=== PATIENT | male | born 1945 | race Caucasian/White ===

== ENCOUNTER 2017-01-04 08:00 | Emergency (ER) | payer OTHER ==
[~2017-01-04] VITALS: Ht 172.7 cm; Wt 80.9 kg
[~2017-01-04 08:00] MED LIST: ASPI81TA82 PO; ATOR80TA PO; BACL10TA PO; CLON.5 PO; GLIP5 PO; LISI40TA PO; MELO7.5 PO; METO50TA PO; METR-1 PO; PAME50CA PO; SERO200T PO; SERT100 PO; SKIN1CRE2 TOP; TOPI100 PO; TRAZ100 PO; VITA100018 PO; WAL-10TA2 PO; [UNRECOGNIZED DRUG - CODE]
[2017-01-04 08:16] VITALS: BP 140/81; PULSE 78; RESP 18; TEMP 97.6; O2SAT 97
[2017-01-04] MEDS ORDERED: SODIUM CHLOR 0.9% 1000 ML INJ 1,000 ML IV ONE (08:17)
--- NOTE | 2017-01-04 08:26 | PD ---
HPI Chief Complaint: Headache Time Seen by Provider: 08:17 Travel History International Travel<30 days: No Contact w/Intl Traveler<30days: No Traveled to known affect area: No History of Present Illness HPI 71-year-old male arrives with complaint of cluster headaches. He gets them periodically. Botox injections have been very helpful for the past year or so. He developed cluster type headache over the last day or so. [facility] He states the headache syndrome is classic for cluster type pain. He states she's had it for years. He was given Lortab by the [facility] and found very marginal improvement after taking it. He has had some vomiting. He denies neck stiffness. Pain was severe earlier. At the moment, his pain is minimal. Oxygen at home was helpful earlier. PFSH Past Medical History Arthritis: Yes Asthma: Yes Blood Disorders: No Heart Rhythm Problems: No Cancer: No Cardiac Catheterization: Yes Cardiovascular Problems: Yes High Cholesterol: Yes Chest Pain: Yes Congestive Heart Failure: Yes COPD: Yes Cerebrovascular Accident: Yes (NO DEFICITS) Coronary Artery Disease: Yes Diabetes: Yes Diminished Hearing: No Endocrine: Yes Gastrointestinal Disorders: Yes Genitourinary: No Headaches: Yes (CLUSTER) Hypertension: Yes Immune Disorder: No Musculoskeletal: Yes Neurologic: No Psychiatric: No Reproductive: No Respiratory: Yes Immunizations Current: Yes Myocardial Infarction: Yes (X 3) Sleep Apnea: Yes Thyroid Disease: No Past Surgical History AICD: No Arteriovenous Shunt: No Cardiac Surgery: Yes (CABG 5 VESSEL) Coronary Artery Bypass Graft: Yes (X 5 VESSELS) Insulin Pump: No Joint Replacement: No Pacemaker: No Other Surgery: No Social History Alcohol Use: No (QUIT 2002) Tobacco Use: No (QUIT 2002) Substance Use: No Allergies-Medications (Allergen,Severity, Reaction): Coded Allergies: Amoxicillin (Verified Allergy, Severe, UNKNOWN, 09/26/15) Aspirin (Verified Allergy, Severe, ULCERS, 09/26/15) Coumadin (Verified Allergy, Severe, "ULCERS", 09/26/15) Indomethacin (Verified Allergy, Severe, UNKNOWN, 09/26/15) Levaquin (Verified Allergy, Severe, Rash, 09/26/15) Nonsteroidal Anti-Inflammatory Agts (Verified Allergy, Severe, UNKNOWN, ) Latex (Verified Allergy, Unknown, 09/26/15) Reported Meds & Prescriptions Reported Meds & Active Scripts Active Reported Metoprolol Succinate ER 24 HR (Metoprolol Succinate) 25 Mg Tab 25 Mg PO BID Lisinopril 20 Mg Tab 20 Mg PO DAILY Aspirin 81 (Aspirin) 81 Mg Tabdr 81 Mg PO DAILY Glipizide 5 Mg Tab 5 Mg PO BIDAC Take 30 minutes before a meal Atorvastatin (Atorvastatin Calcium) 80 Mg Tab 80 Mg PO HS Folic Acid 400 Mcg Tab 400 Mcg PO DAILY Omeprazole 20 Mg Tab 20 Mg PO DAILY Hydrocodone-Acetaminophen 7.5-325 mg Tab 1 Tab PO TID PRN Review of Systems Except as stated in HPI: all other systems reviewed are Neg General / Constitutional: No: Fever Neurologic: Positive: Headache Physical Exam Narrative GENERAL: 71 yo M, WNWD, pleasant SKIN: Warm and dry. HEAD: Atraumatic. Normocephalic. Absence of forehead wrinkles is observed c/w Botox therapy. EYES: Pupils equal and round. No scleral icterus. No injection or drainage. ENT: No nasal bleeding or discharge. Mucous membranes pink and moist. NECK: Trachea midline. No JVD. CARDIOVASCULAR: Regular rate and rhythm. RESPIRATORY: No accessory muscle use. Clear to auscultation. Breath sounds equal bilaterally. GASTROINTESTINAL: Abdomen soft, non-tender, nondistended. Hepatic and splenic margins not palpable. MUSCULOSKELETAL: Extremities without clubbing, cyanosis, or edema. No obvious deformities. NEUROLOGICAL: Awake and alert. No obvious cranial nerve deficits. Motor grossly within normal limits. Five out of 5 muscle strength in the arms and legs. Normal speech. PSYCHIATRIC: Appropriate mood and affect; insight and judgment normal. Data Data Last Documented VS Vital Signs Date Time Temp Pulse Resp B/P Pulse Ox O2 Delivery O2 Flow Rate FiO2 01/04/17 08:57 71 18 139/74 94 Room Air 01/04/17 08:16 97.6 VS reviewed Orders Ecg Monitoring (01/04/17 08:17) Iv Access Insert/Monitor (01/04/17 08:17) Oximetry (01/04/17 08:17) Sodium Chloride 0.9% Flush (Ns Flush) (01/04/17 08:30) Prochlorperazine Inj (Compazine Inj) (01/04/17 08:30) Diphenhydramine Inj (Benadryl Inj) (01/04/17 08:30) Sodium Chlor 0.9% 1000 Ml Inj (Ns 1000 M (01/04/17 08:17) MDM Medical Decision Making Medical Screen Exam Complete: Yes Emergency Medical Condition: Yes Medical Record Reviewed: Yes Differential Diagnosis Cluster TEAGUE, migraine, complex migraine, ICH/SAH, meningitis Narrative Course Abortive therapy proved effective per pt attestation at time of reassessment at 910AM. Given chronicity and patient familiarity with disease we can reasonably safely defer diagnostic evaluations and focus primarily on treatment which has been performed in a meritorious fashion. Diagnosis Primary Impression: Cluster headache Qualified Code: G44.019 - Episodic cluster headache, not intractable Referrals: [facility] as needed Additional Instructions: You have a choice when it comes to health care, and we are glad that you chose [facility] Hopefully, we have met your expectations on today's visit. You are welcome to return to [facility] at any time, as we are committed to meeting the health care needs of our community. Med/Other Pt SpecificInfo: No Change to Meds Disposition: DISCHARGE HOME Condition: Jordan Ramirez MD January 04, 2017 08:26 Additional Instructions: You have a choice when it comes to health care, and we are glad that you chose [facility] Hopefully, we have met your expectations on today's visit. You are welcome to return to [facility] at any time, as we are committed to meeting the health care needs of our community. Med/Other Pt SpecificInfo: No Change to Meds Disposition: DISCHARGE HOME Condition: Jordan Ramirez MD January 04, 2017 08:26
[2017-01-04] MEDS ORDERED: GLIP5TAB8 PO (08:27)
[2017-01-04] MEDS ORDERED: OMEP20TA PO (08:27)
[2017-01-04] MEDS ORDERED: LISI-515 PO (08:27)
[2017-01-04] MEDS ORDERED: FOLI400T PO (08:27)
[2017-01-04] MEDS ORDERED: HYDR-3580 PO (08:27)
[2017-01-04] MEDS ORDERED: ASPI-110 PO (08:27)
[2017-01-04] MEDS ORDERED: ATOR1TAB18 PO (08:27)
[2017-01-04] MEDS ORDERED: METO25TA6 PO (08:27)
[2017-01-04] MEDS ORDERED: SODIUM CHLORIDE 0.9% FLUSH 10 ML FLUSH IVF PRN (08:30)
[2017-01-04] MEDS ORDERED: diphenhydrAMINE HCL 50 MG/ML VIAL IVP ONE (08:30)
[2017-01-04] MEDS ORDERED: PROCHLORPERAZINE INJ 10 MG/2 ML VIAL IVP ONE (08:30)
[2017-01-04 08:53] VITALS: O2SAT 97
[2017-01-04 08:57] VITALS: BP 139/74; PULSE 71; RESP 18; O2SAT 94
[2017-01-04] MEDS ORDERED: HYDROmorphone HCL PF 1 MG/ML VIAL IV PUSH ONE (09:30)
[2017-01-04 09:43] VITALS: BP 164/83; PULSE 69; RESP 18; O2SAT 95
== END 2017-01-04 10:13 | disposition home or self-care (01) ==
LOC: PHED 08:00
DX: G44.019 Episodic cluster headache, not intractable (principal); R11.10 Vomiting, unspecified; E11.9 Type 2 diabetes mellitus without complications; I10 Essential (primary) hypertension; E78.00 Pure hypercholesterolemia, unspecified; G47.30 Sleep apnea, unspecified; Z79.84 Long term (current) use of oral hypoglycemic drugs; Z87.39 Personal history of other diseases of the musculoskeletal system and connective tissue; Z87.09 Personal history of other diseases of the respiratory system; Z86.79 Personal history of other diseases of the circulatory system; Z87.19 Personal history of other diseases of the digestive system
CPT/HCPCS: 96361; 96374; 96375; 99284; J0780; J1170; J1200; J7030

== ENCOUNTER 2017-10-20 08:00 | Emergency (ER) | payer OTHER ==
[~2017-10-20] VITALS: Ht 172.7 cm; Wt 85.0 kg
[~2017-10-20 08:00] MED LIST changes: +ASPI1TAB57 PO; -ASPI81TA82 PO; -ATOR80TA PO; +ATOR80TA45 PO; -BACL10TA PO; -CLON.5 PO; +FOLI400T PO; -GLIP5 PO; +GLIP5TAB8 PO; +HYDR-3580 PO; +LISI-515 PO; -LISI40TA PO; -MELO7.5 PO; +METO1TAB42 PO; -METO50TA PO; -METR-1 PO; +OMEP20TA93 PO; -PAME50CA PO; -SERO200T PO; -SERT100 PO; -SKIN1CRE2 TOP; -TOPI100 PO; -TRAZ100 PO; -VITA100018 PO; -WAL-10TA2 PO; -[UNRECOGNIZED DRUG - CODE]
[2017-10-20 08:04] VITALS: BP 184/88; PULSE 75; RESP 16; TEMP 98; O2SAT 95
[2017-10-20] MEDS ORDERED: PROCHLORPERAZINE INJ 10 MG/2 ML VIAL IVP ONE (09:15)
[2017-10-20] MEDS ORDERED: SODIUM CHLORID 0.9% 500 ML INJ 500 ML IV ONE (09:15)
[2017-10-20] MEDS ORDERED: diphenhydrAMINE HCL 50 MG/ML VIAL IVP ONE (09:15)
[2017-10-20 09:26] VITALS: BP 190/95; PULSE 88; RESP 20; O2SAT 95
--- NOTE | 2017-10-20 09:51 | RADRPT ---
EXAM DATE/TIME: 10/20/2017 09:28 [facility] COMPARISON: No previous studies available for comparison. INDICATIONS : Cephalgia x 1 week. RADIATION DOSE: 63.74 CTDIvol (mGy) MEDICAL HISTORY : Chronic obstructive pulmonary disease. Congestive heart failure. Myocardial infarction.Hypertension. Diabetes. SURGICAL HISTORY : CABG ENCOUNTER: Initial ACUITY: 1 week PAIN SCALE: 8/10 LOCATION: cranial TECHNIQUE: Multiple contiguous axial images were obtained of the head. Using automated exposure control and adj ustment of the mA and/or kV according to patient size, radiation dose was kept as low as reasonably a chievable to obtain optimal diagnostic quality images. DICOM format image data is available electro nically for review and comparison. FINDINGS: CEREBRUM: The ventricles are normal for age. No evidence of midline shift, mass lesion, hemorrhage or acute in farction. No extra-axial fluid collections are seen. POSTERIOR FOSSA: The cerebellum and brainstem are intact. The 4th ventricle is midline. The cerebellopontine angle i s unremarkable. EXTRACRANIAL: The visualized portion of the orbits is intact. SKULL: The calvaria is intact. No evidence of skull fracture. CONCLUSION: 1. No acute intracranial abnormalities. Gamaliel Arteaga MD on October 20, 2017 at 9:37 Board Certified Radiologist. This report was verified electronically.
--- NOTE | 2017-10-20 10:33 | PD ---
HPI Chief Complaint: Headache Time Seen by Provider: 09:04 Travel History International Travel<30 days: No Contact w/Intl Traveler<30days: No Traveled to known affect area: No History of Present Illness HPI 72-year-old male states he has a right sided headache that feels like his prior cluster headache that he's unsure if he has a sinus issue as his nose is a little stuffy. He states he hasn't been having any fevers trauma. He denies any thunderclap onset. He states he has been taking Aleve for pain relief but is afraid to keep taking this. He denies any other concurrent complaints. Quality is pressure. Severity is moderate. He denies specific modifying factors. He states he's been trying Tylenol at home without relief. PFSH Past Medical History Arthritis: Yes Asthma: Yes Blood Disorders: No Heart Rhythm Problems: No Cancer: No Cardiac Catheterization: Yes Cardiovascular Problems: Yes High Cholesterol: Yes Chest Pain: Yes Congestive Heart Failure: Yes COPD: Yes Cerebrovascular Accident: Yes (NO DEFICITS) Coronary Artery Disease: Yes Diabetes: Yes Patient Takes Glucophage: No Diminished Hearing: No Endocrine: Yes Gastrointestinal Disorders: Yes Genitourinary: No Headaches: Yes (CLUSTER) Heparin Induced Thrombocytopen: No Hypertension: Yes Immune Disorder: No Musculoskeletal: Yes Neurologic: No Psychiatric: No Reproductive: No Respiratory: Yes Immunizations Current: Yes Myocardial Infarction: Yes (X 3) Sleep Apnea: Yes Thyroid Disease: No Past Surgical History AICD: No Arteriovenous Shunt: No Cardiac Surgery: Yes (CABG 5 VESSEL) Coronary Artery Bypass Graft: Yes (X 5 VESSELS) Insulin Pump: No Joint Replacement: No Pacemaker: No Other Surgery: No Social History Alcohol Use: No (QUIT 2002) Tobacco Use: No (QUIT 2002) Substance Use: No Allergies-Medications (Allergen,Severity, Reaction): Coded Allergies: amoxicillin (Unverified Allergy, Severe, UNKNOWN, 10/20/17) aspirin (Unverified Allergy, Severe, ULCERS, 10/20/17) diclofenac (Unverified Allergy, Severe, UNKNOWN, 10/20/17) etodolac (Unverified Allergy, Severe, UNKNOWN, 10/20/17) flurbiprofen (Unverified Allergy, Severe, UNKNOWN, 10/20/17) ibuprofen (Unverified Allergy, Severe, UNKNOWN, 10/20/17) indomethacin (Unverified Allergy, Severe, UNKNOWN, 10/20/17) ketoprofen (Unverified Allergy, Severe, UNKNOWN, 10/20/17) ketorolac (Unverified Allergy, Severe, UNKNOWN, 10/20/17) levofloxacin (Unverified Allergy, Severe, Rash, 10/20/17) naproxen (Unverified Allergy, Severe, UNKNOWN, 10/20/17) oxaprozin (Unverified Allergy, Severe, UNKNOWN, 10/20/17) warfarin (Unverified Allergy, Severe, "ULCERS", 10/20/17) latex (Unverified Allergy, Unknown, 10/20/17) Reported Meds & Prescriptions Reported Meds & Active Scripts Active Reported Metoprolol Succinate ER 24 HR (Metoprolol Succinate) 25 Mg Tab 25 Mg PO BID Lisinopril 20 Mg Tab 20 Mg PO DAILY Aspirin 81 (Aspirin) 81 Mg Tabdr 81 Mg PO DAILY Glipizide 5 Mg Tab 5 Mg PO BIDAC Take 30 minutes before a meal Atorvastatin (Atorvastatin Calcium) 80 Mg Tab 80 Mg PO HS Folic Acid 400 Mcg Tab 400 Mcg PO DAILY Omeprazole 20 Mg Tab 20 Mg PO DAILY Hydrocodone-Acetaminophen 7.5-325 mg Tab 1 Tab PO TID PRN Review of Systems Except as stated in HPI: all other systems reviewed are Neg Physical Exam Narrative GENERAL: 72-year-old male in no apparent distress SKIN: Focused skin assessment warm/dry. HEAD: Atraumatic. Normocephalic. EYES: Pupils equal and round. No scleral icterus. No injection or drainage. ENT: No nasal bleeding or discharge. Mucous membranes pink and moist. NECK: Trachea midline. No JVD. No meningeal signs CARDIOVASCULAR: Regular rate and rhythm. RESPIRATORY: No accessory muscle use. Clear to auscultation. Breath sounds equal bilaterally. GASTROINTESTINAL: Abdomen soft, non-tender, nondistended. MUSCULOSKELETAL: No obvious deformities. No clubbing. No cyanosis. No edema. NEUROLOGICAL: Awake and alert. No obvious cranial nerve deficits. Motor grossly within normal limits. Normal speech. PSYCHIATRIC: Appropriate mood and affect; insight and judgment normal. Data Data Last Documented VS Vital Signs Date Time Temp Pulse Resp B/P (MAP) Pulse Ox O2 Delivery O2 Flow Rate FiO2 10/20/17 09:26 88 20 190/95 (126) 95 10/20/17 09:19 Non-Rebreather 10/20/17 08:[address] Brain W/O Iv Contrast(Rout) (10/20/17 09:12) Ecg Monitoring (10/20/17 09:12) Iv Access Insert/Monitor (10/20/17 09:12) Oximetry (10/20/17 09:12) Prochlorperazine Inj (Compazine Inj) (10/20/17 09:15) Diphenhydramine Inj (Benadryl Inj) (10/20/17 09:15) Sodium Chlorid 0.9% 500 Ml Inj (Ns 500 M (10/20/17 09:15) Oxygen Administration (10/20/17 09:12) Ed Discharge Order (10/20/17 10:32) MDM Medical Decision Making Medical Screen Exam Complete: Yes Emergency Medical Condition: Yes Medical Record Reviewed: Yes ([facility] confirmed) Interpretation(s) ct brain no acute Differential Diagnosis Cluster, tension, migraine, intracranial Narrative Course Will check CT brain and dose with Benadryl and Compazine and provided oxygen and reevaluate CT brain no emergent.Patient denies any new complaints and states that they are feeling better. Patient happy with care, all questions answered. Patient knows that follow up is incumbent on them and to return to the emergency room immediately if new or worsening symptoms develop. Patient given strict return precautions, vitals reviewed and are normal, agrees to further workup as an outpatient. Diagnosis Primary Impression: Headache Qualified Codes: R51 - Headache Patient Instructions: General Instructions Additional Instructions: Return as needed, Tylenol as needed, follow with primary Monday for recheck Med/Other Pt SpecificInfo: No Change to Meds Disposition: 01 DISCHARGE HOME Condition: Stable Maame Davenport MD Oct 20, 2017 10:33
[2017-10-20 10:45] VITALS: BP 202/117; PULSE 114; RESP 18; O2SAT 98
[2017-10-20] MEDS ORDERED: KETOROLAC TROMETHAMINE 30 MG/ML (IVP) VIAL IV PUSH ONE (11:00)
== END 2017-10-20 11:54 | disposition home or self-care (01) ==
LOC: PHED 08:00 → PHEFT 11:54
DX: R51 Headache (principal); I11.0 Hypertensive heart disease with heart failure; I50.9 Heart failure, unspecified; I25.10 Atherosclerotic heart disease of native coronary artery without angina pectoris; J44.9 Chronic obstructive pulmonary disease, unspecified; E78.00 Pure hypercholesterolemia, unspecified; E11.9 Type 2 diabetes mellitus without complications; Z87.891 Personal history of nicotine dependence; Z86.73 Personal history of transient ischemic attack (TIA), and cerebral infarction without residual deficits; Z95.1 Presence of aortocoronary bypass graft; Z88.8 Allergy status to other drugs, medicaments and biological substances; Z79.82 Long term (current) use of aspirin; Z79.899 Other long term (current) drug therapy
CPT/HCPCS: 70450; 96374; 96375; 99285; J0780; J1200; J1885; J7040

== ENCOUNTER 2017-12-31 02:03 | Emergency (ER) | payer OTHER ==
[~2017-12-31] VITALS: Ht 172.7 cm; Wt 85.0 kg
[2017-12-31 02:08] VITALS: BP 156/81; PULSE 84; RESP 20; TEMP 97.7; O2SAT 95
[2017-12-31] MEDS ORDERED: diphenhydrAMINE HCL 50 MG/ML VIAL IVP ONE (03:15)
[2017-12-31] MEDS ORDERED: SODIUM CHLORIDE 0.9% FLUSH 10 ML FLUSH IVF PRN (03:15)
[2017-12-31] MEDS ORDERED: PROCHLORPERAZINE INJ 10 MG/2 ML VIAL IVP ONE (03:15)
[2017-12-31] MEDS ORDERED: SODIUM CHLOR 0.9% 1000 ML INJ 1,000 ML IV ONE (03:15)
[2017-12-31 04:37] VITALS: BP 150/76; PULSE 82; RESP 18; O2SAT 96
[2017-12-31] MEDS ORDERED: KETOROLAC TROMETHAMINE 30 MG/ML (IVP) VIAL IV PUSH ONE (04:45)
--- NOTE | 2017-12-31 04:56 | PD ---
HPI Chief Complaint: Headache Time Seen by Provider: 03:14 Travel History International Travel<30 days: No Contact w/Intl Traveler<30days: No Traveled to known affect area: No History of Present Illness HPI 72-year-old male presents to the emergency department for complaint of 3 days of recurrent migraine/cluster headache. Patient states he frequently has to come to the hospital to have IV medication. Patient typically receives a combination of medications and IV fluids to have symptom relief. Review of record indicates patient typically receives Benadryl Compazine and/or Toradol. Patient states that [id number] ibuprofen has not provided him any symptom relief today. Patient had nausea but no vomiting. Patient has had typical unilateral headache pain on the right side with associated photophobia and phonophobia. Patient denies any sudden onset thunderclap or worst ever headache. Patient said no upper extremity or lower extremity numbness tingling or weakness or ataxia gait. Patient denies change in mentation and no loss of vision or double vision. Patient rates pain at 7/[address] Patient had [address] brain noncontrast as recently as 10/2014 and states headaches are unchanged. Patient is followed by the [place] Past Medical History Narrative Medical Arthritis asthma CAD with [place] dyslipidemia CHF COPD CVA migraine headache cluster headache sleep apnea cardiac catheterization CABG no tobacco use; nursing notes reviewed Arthritis: Yes Asthma: Yes Blood Disorders: No Heart Rhythm Problems: No Cancer: No Cardiac Catheterization: Yes Cardiovascular Problems: Yes High Cholesterol: Yes Chest Pain: Yes Congestive Heart Failure: Yes COPD: Yes Cerebrovascular Accident: Yes (NO DEFICITS) Coronary Artery Disease: Yes Diabetes: Yes Patient Takes Glucophage: Yes Diminished Hearing: No Endocrine: Yes Gastrointestinal Disorders: Yes Genitourinary: No Headaches: Yes (CLUSTER) Heparin Induced Thrombocytopen: No Hypertension: Yes Immune Disorder: No Musculoskeletal: Yes Neurologic: No Psychiatric: No Reproductive: No Respiratory: Yes Immunizations Current: Yes Myocardial Infarction: Yes (X 3) Sleep Apnea: Yes Thyroid Disease: No Tetanus Vaccination: < 5 Years Influenza Vaccination: Yes Past Surgical History AICD: No Arteriovenous Shunt: No Cardiac Surgery: Yes (CABG 5 VESSEL) Coronary Artery Bypass Graft: Yes (X 5 VESSELS) Insulin Pump: No Joint Replacement: No Pacemaker: No Other Surgery: No Family History Family Myocardial Infarction: No Social History Alcohol Use: No (QUIT 2002) Tobacco Use: No (QUIT 2002) Substance Use: No Allergies-Medications (Allergen,Severity, Reaction): Coded Allergies: amoxicillin (Unverified Allergy, Severe, UNKNOWN, 12/31/17) aspirin (Unverified Allergy, Severe, ULCERS, 12/31/17) diclofenac (Unverified Allergy, Severe, UNKNOWN, 12/31/17) etodolac (Unverified Allergy, Severe, UNKNOWN, 12/31/17) flurbiprofen (Unverified Allergy, Severe, UNKNOWN, 12/31/17) ibuprofen (Unverified Allergy, Severe, UNKNOWN, 12/31/17) indomethacin (Unverified Allergy, Severe, UNKNOWN, 12/31/17) ketoprofen (Unverified Allergy, Severe, UNKNOWN, 12/31/17) ketorolac (Unverified Allergy, Severe, UNKNOWN, 12/31/17) levofloxacin (Unverified Allergy, Severe, Rash, 12/31/17) naproxen (Unverified Allergy, Severe, UNKNOWN, 12/31/17) oxaprozin (Unverified Allergy, Severe, UNKNOWN, 12/31/17) warfarin (Unverified Allergy, Severe, "ULCERS", 12/31/17) latex (Unverified Allergy, Unknown, 12/31/17) Comments 12/30/17 patient denies allergy to toradol Reported Meds & Prescriptions Reported Meds & Active Scripts Active Reported Metoprolol Succinate ER 24 HR (Metoprolol Succinate) 25 Mg Tab 25 Mg PO BID Lisinopril 20 Mg Tab 20 Mg PO DAILY Aspirin 81 (Aspirin) 81 Mg Tabdr 81 Mg PO DAILY Glipizide 5 Mg Tab 5 Mg PO BIDAC Take 30 minutes before a meal Atorvastatin (Atorvastatin Calcium) 80 Mg Tab 80 Mg PO HS Folic Acid 400 Mcg Tab 400 Mcg PO DAILY Omeprazole 20 Mg Tab 20 Mg PO DAILY Review of Systems Except as stated in HPI: all other systems reviewed are Neg General / Constitutional: No: Fever, Chills Eyes: Positive: Photophobia, No: Diploplia, Blurred Vision HENT: Positive: Headaches, No: Neck Pain Cardiovascular: No: Chest Pain or Discomfort Respiratory: No: Shortness of Breath Gastrointestinal: Positive: Nausea, No: Vomiting, Diarrhea, Abdominal Pain Genitourinary: No: Dysuria, Flank Pain Musculoskeletal: No: Myalgias, Arthralgias Skin: No Rash Neurologic: Positive: Headache, No: Weakness, Dizziness, Syncope, Focal Abnormalities, Coordination Problem, Change in Mentation, Slurred Speech, Paresthesia Endocrine: No: Heat Intolerance Hematologic/Lymphatic: No: Easy Bruising Physical Exam Narrative GENERAL: Well-developed well-nourished male in no acute distress or respiratory distress SKIN: Warm and dry. HEAD: Atraumatic. Normocephalic. EYES: Pupils equal and round. No scleral icterus. No injection or drainage. Pupils equal round reactive to light extra ocular muscles intact no papilledema on funduscopic exam ENT: No nasal bleeding or discharge. Mucous membranes pink and moist. NECK: Trachea midline. No JVD. No meningismus no nuchal rigidity CARDIOVASCULAR: Regular rate and rhythm. RESPIRATORY: No accessory muscle use. Clear to auscultation. Breath sounds equal bilaterally. GASTROINTESTINAL: Abdomen soft, non-tender, nondistended. Hepatic and splenic margins not palpable. MUSCULOSKELETAL: Extremities without clubbing, cyanosis, or edema. No obvious deformities. NEUROLOGICAL: Awake and alert. No obvious cranial nerve deficits. Motor grossly within normal limits. Five out of 5 muscle strength in the arms and legs. Normal speech. PSYCHIATRIC: Appropriate mood and affect; insight and judgment normal. Data Data Last Documented VS Vital Signs Date Time Temp Pulse Resp B/P (MAP) Pulse Ox O2 Delivery O2 Flow Rate FiO2 12/31/17 05:14 78 16 172/75 (107) 96 12/31/17 04:37 Room Air 12/31/17 02:08 97.7 Orders Orders Ecg Monitoring (12/31/17 03:15) Iv Access Insert/Monitor (12/31/17 03:15) Oximetry (12/31/17 03:15) Sodium Chloride 0.9% Flush (Ns Flush) (12/31/17 03:15) Prochlorperazine Inj (Compazine Inj) (12/31/17 03:15) Diphenhydramine Inj (Benadryl Inj) (12/31/17 03:15) Sodium Chlor 0.9% 1000 Ml Inj (Ns 1000 M (12/31/17 03:15) Ketorolac Inj (Toradol Inj) (12/31/17 04:45) Ed Discharge Order (12/31/17 05:12) MDM Medical Decision Making Medical Screen Exam Complete: Yes Emergency Medical Condition: Yes Medical Record Reviewed: Yes Differential Diagnosis Recurrent migraine/recurrent cluster headache intractable cephalgia ICH complex migraine subarachnoid hemorrhage Narrative Course Patient with history of cluster headache and migraine headache according to his report with recurrent episode patient with CT brain noncontrast as recently as October 2017 with no acute findings patient with multiple imaging studies. Patient reports symptoms are typical of his headaches. Not sudden onset lower extremity not thunderclap patient has regimen of medications that have been identified by review of medical records to be effective Compazine and Benadryl and Toradol. On medical record Toradol as listed in allergy patient denies known allergy to Toradol and last visit 10/2014 received Toradol without adverse reaction and instead beneficial response. Pain still 6/10 down from 7/10 from IVF, Benadryl and compazine. Patient administer medications with symptom improvement down to a 2/10 after toradol and is stable for outpatient management. Diagnosis Primary Impression: Headache Referrals: [facility] 2 days Patient Instructions: General Instructions Additional Instructions: Increase fluid hydration continue chronic medications as chronically prescribed may take Zofran as prescribed as needed for nausea and/or vomiting Return to the emergency department for any concerns or change in condition [facility] May take acetaminophen/Tylenol for fever 100.4F or greater Elly Wheeler MD December 31, 2017 04:56
[2017-12-31 05:14] VITALS: BP 172/75
[2017-12-31] MEDS ORDERED: ZOFR4TAB3 SL (05:20)
== END 2017-12-31 05:26 | disposition home or self-care (01) ==
LOC: PHED 02:03
DX: R51 Headache (principal); R11.0 Nausea; J45.909 Unspecified asthma, uncomplicated; J44.9 Chronic obstructive pulmonary disease, unspecified; I11.0 Hypertensive heart disease with heart failure; E11.9 Type 2 diabetes mellitus without complications; Z88.6 Allergy status to analgesic agent; Z79.82 Long term (current) use of aspirin
CPT/HCPCS: 96361; 96374; 96375; 99284; J0780; J1200; J1885; J7030